=== PATIENT | male | born 1980 | race Caucasian/White ===

== ENCOUNTER 2022-03-25 07:14 | Emergency (ER) | payer BC, OTHER ==
[2022-03-25] MEDS ORDERED: FAMOTIDINE 20 MG TABLET PO ONE (07:18)
[2022-03-25] MEDS ORDERED: DEXAMETHASONE SOD PHOSPHATE 10 MG/1 ML VIAL IM ONE (07:18)
[2022-03-25] MEDS ORDERED: diphenhydrAMINE HCL 25 MG CAPSULE (FP) PO ONE (07:18)
[2022-03-25 07:27] VITALS: BP 132/95; PULSE 89; RESP 18; TEMP 98.3; BMI 30.7
[2022-03-25] MEDS ORDERED: diphenhydrAMINE HCL 50 MG CAPSULE ONE (07:28)
[2022-03-25] MEDS ORDERED: DEXAMETHASONE SOD PHOSPHATE 10 MG/1 ML VIAL ONE (07:28)
[2022-03-25] MEDS ORDERED: FAMOTIDINE 20 MG TABLET ONE (07:28)
== END 2022-03-25 10:18 | disposition home or self-care (01) ==
LOC: FER 07:14
PROC: 3E023NZ Introduction of Analgesics, Hypnotics, Sedatives into Muscle, Percutaneous Approach (ICD-10-PCS; principal; 2022-03-25)
DX: T78.40XA Allergy, unspecified, initial encounter (principal)
CPT/HCPCS: 99283-25; J1100